=== PATIENT | female | born 1990 | race Caucasian/White ===

== ENCOUNTER 2018-02-25 09:46 | Emergency (ER) | payer SELFPAY ==
[~2018-02-25] VITALS: Ht 167.6 cm; Wt 73.0 kg
[2018-02-25 09:51] VITALS: BP 119/59; PULSE 99; RESP 18; TEMP 98.4; O2SAT 98
== END 2018-02-25 10:22 | disposition left against medical advice (07) ==
LOC: NED 09:46
DX: R07.0 Pain in throat (principal)
CPT/HCPCS: 99281